=== PATIENT | female | born 1965 | race Caucasian/White ===

== ENCOUNTER → 2024-08-03 15:50 | Outpatient (REF) | payer BC, SELFPAY | LOC: HWRCS 15:50 | PROVIDERS: ATTENDING PHYSICIAN Internal Medicine Cardiovascular Disease; FAMILY PHYSICIAN Family Medicine | DX: E78.5 Hyperlipidemia, unspecified (principal); R55 Syncope and collapse | CPT/HCPCS: 93306 ==

== ENCOUNTER 2025-01-27 20:21 | Emergency (ER) | payer BC, SELFPAY ==
[2025-01-27 20:27] VITALS: BP 150/96
[2025-01-27 20:52] LABS: Hematocrit 34.6 % (37.0-47.0); Hemoglobin 12.5 g/dL (12.0-16.0); Mean Corp Hgb Conc. 36.1 g/dL (33.0-37.0); Mean Corpuscular Volume 88.5 fL (81.0-99.0); Nucleated Red Blood Cells % 0 %; Platelet Count 278 10^3/uL (130-400); Red Cell Dist. Width 11.6 % (11.5-14.5)
[2025-01-27 21:12] LABS: ALT (SGPT) 22 U/L (0-35); AST (SGOT) 25 U/L (14-36); Albumin 4.9 g/dl (3.5-5.0); Alkaline Phosphatase 84 U/L (38-126); Blood Urea Nitrogen 14 mg/dl (7-17); Calcium 10.0 mg/dl (8.4-10.2); Carbon Dioxide 24 mmol/L (22-30); Chloride 105 mmol/L (98-107); Glucose 91 mg/dl (70-99); Lipase 154 U/L (23-300); Potassium 3.5 mmol/L (3.5-5.1); Sodium 139 mmol/L (135-145); Total Protein 7.6 g/dl (6.3-8.2); eGFR > 60.00
[2025-01-27 21:25] LABS: Troponin I < 0.012 ng/ml
[2025-01-27 23:32] VITALS: BP 153/97
--- NOTE | 2025-01-27 23:36 | EDRN ---
Pt developed upper R abdominal pain around 1900 that radiates into epigastric area and back. Pain has improved a lot since it started. No medications taken for pain. Pt burped and said it did not help. Pt vomited couple times which did not
relieve pain immediately. No nausea now. No hx gallstones. Pt has a hiatal hernia. Pt felt shaky in waiting room, no longer. No fever/cough, sob. Pt had a slice of pizza and fries for dinner.
[2025-01-28] VITALS: BP 148/99
[2025-01-28 02:50] VITALS: BP 144/96
[2025-01-28 03:00] VITALS: BP 139/95
--- NOTE | 2025-01-28 04:06 | ED.GENMED ---
History of Present Illness
General
Chief Complaint: Chest Pain
Source: patient
Exam Limitations: none
Time Seen by Provider: 01/27/25 23:25
Nursing documentation reviewed up to this point in time: agreed with
History of Present Illness
History of Present Illness:
Note:
CHIEF COMPLAINT(S)
Severe epigastric pain
HISTORY OF PRESENT ILLNESS
The patient is a 59-year-old female with a history of hiatal hernia, presenting with severe epigastric pain. The pain began approximately between 6:30 and 7:00 PM on the night of the visit. The patient initially thought the pain was related to her
hiatal hernia, as similar pain sometimes occurs due to it, but typically resolves after belching. In this case, the pain progressively worsened instead of subsiding. It is described as sharp and severe, with intensity reaching up to 9 out of 10, and
it fluctuates in severity. The pain persisted even after vomiting, which occurred approximately 45 minutes to an hour after eating. The patient reported having not experienced such severe pain from her hernia in the past.
ADDITIONAL HISTORY OBTAINED FROM SOURCES OTHER THAN THE PATIENT
No additional sources were consulted for this visit.
PHYSICAL EXAM
General: Alert, no acute distress.
Skin: Warm, dry.
Head: Normocephalic, atraumatic.
Neck: Supple, trachea midline.
Eye Ears, nose, mouth, and throat: Oral mucosa moist.
Cardiovascular: Normal peripheral perfusion, no edema.
Respiratory: Respirations are non-labored.
Gastrointestinal: Abdomen nondistended.
Back: Normal range of motion, normal alignment.
Musculoskeletal: Normal range of motion, normal strength.
Neurological: Alert and oriented to person, place, time, and situation. No focal neurological deficit observed.
Psychiatric: Cooperative, appropriate mood & affect.
PLAN
The plan includes performing an abdominal ultrasound to assess for gallbladder issues, such as cholecystitis or biliary colic. The patient is advised not to eat or drink until further assessment is done, in case surgical intervention becomes
necessary. Depending on the ultrasound results, the patient might be recommended to consult with a surgeon for potential elective gallbladder removal if long-term issues with the gallbladder are identified. If the ultrasound results do not indicate
significant issues, the patients condition might be managed conservatively with pain control and outpatient follow-up.
DIFFERENTIAL DIAGNOSIS
The Differential Diagnosis includes, in no particular order and is not limited to:
1. Biliary colic
2. Acute cholecystitis
3. Peptic ulcer disease
4. Pancreatitis
5. Gastroesophageal reflux disease (GERD)
6. Myocardial infarction
7. Gastritis
8. Esophageal spasm
9. Hiatal hernia pain
10. Gallstones (cholelithiasis)
Disposition:
SUMMARY OF ENCOUNTER
The patient, a 59-year-old female with a history of hiatal hernia, presented to the emergency department with severe epigastric pain that began around 6:30 to 7:00 PM. Initially, she thought it was related to her hiatal hernia, which typically
resolves after belching. However, the pain worsened and was described as sharp, with a fluctuating intensity reaching up to 9 out of 10. Despite vomiting approximately 45 minutes to an hour after eating, the pain persisted. Due to the severity and
nature of the pain, an abdominal ultrasound was ordered to assess for potential gallbladder issues, such as cholecystitis or biliary colic. The patient was advised to refrain from eating or drinking until further assessment.
PLAN
Perform an abdominal ultrasound to evaluate for gallbladder issues. Instruct the patient not to eat or drink pending further assessment. Depending on the ultrasound results, a surgical consultation may be considered for possible elective gallbladder
removal. If no significant pathology is found, manage conservatively with pain control and outpatient follow-up.
INDEPENDENT REVIEW OF LABS AND INTERPRETATION OF TESTS
My independent interpretation of an abdominal ultrasound shows the need to assess for gallbladder issues, such as cholecystitis or biliary colic.
PATIENT EDUCATION AND COUNSELING
The patient was informed about the potential need for further intervention based on the ultrasound results and advised on the importance of avoiding food and drink until the evaluation is complete.
MEDICATION RECONCILIATION
No medications were administered or prescribed during the visit as per the open hearth helper provided.
MEDICAL DECISION MAKING
- Complexity of Data Reviewed: Chronic conditions affecting care include the patients hiatal hernia as per the history. Additional differential diagnoses considered include biliary colic, acute cholecystitis, peptic ulcer disease, pancreatitis,
GERD, myocardial infarction, gastritis, esophageal spasm, hiatal hernia pain, and gallstones.
- Data:
Category 1: An abdominal ultrasound was ordered for evaluation.
Category 2: No additional history was obtained from sources other than the patient.
Category 3: Not discussed with other healthcare providers per the open hearth helper.
- Risk: Consideration of Admission/Observation: Escalation of care including admission/observation was considered given the complexity and risk of the patients presenting complaint and underlying comorbidities. However, ultimately, the patient was
deemed safe for outpatient management with close follow-up. Reasoning: Work-up reassuring, does not reveal any acute life/organ-threatening processes; patients symptoms well controlled upon reevaluation; reexamination is reassuring; vitals are
stable; patient agreeable with discharge; reliable for follow-up.
DIAGNOSIS
Epigastric pain, acute [ICD-10 CM-Code R10.13]; Possible biliary colic [ICD-10 CM-Code K80.20].
Past History
Past History
ED Past Medical History: HTN, Hypercholesterolemia, Other (Previous epiglottitis, ORIF of right clavicle, hypertension) and Other (Currently being treated for a bacterial infection at the surgical site of her right auricle.)
ED Past Surgical History: Orthopedic
Social History
Tobacco: Non-smoker
Alcohol: Occasional
Drug: None
Personal: Single
Living: with family
Employment: Employed
Family History
Family History: Other (Dad with diabetes and non-Hodgkin's lymphoma. Mother with hypertension)
Phy Exam
Physical Exam
Physical Exam:
.
Scores
Heart Score for Chest Pain Patients
STEMI patient?: No
History: Slightly or Non-Suspicious
ECG: Normal
Age: >45 - <65 years
Risk Factors: 1 or 2 Risk Factors
Troponin: </= Normal Limit
Heart Score for Chest Pain Patients: 2
Heart Score Risk: 2.5% MACE over next 6 weeks
Course
Orders/Labs/Results
Orders:
Orders
01/27/25 20:22
Electrocardiogram (*1) Urgent
Reason for Study: Abdominal Pain
EKG- Treatment ONCE
01/27/25 20:35
Complete Blood Count/With Diff Urgent
Comprehensive Metabolic Panel Urgent
Lipase Urgent
Troponin I Urgent
01/28/25 00:21
US Abdomen Complete/Upper Urgent
Comment:
Reason For Exam: epigastric and ruq pain
Abnormal Lab Results
01/27/25
20:35
RBC 3.91 L 10^6/uL
(4.20-5.40)
Hct 34.6 L %
(37.0-47.0)
MCH 32.0 H pg
(27.0-31.0)
Absolute Monos (auto) 0.7 H 10^3/uL
(0.1-0.6)
01/27/25 20:35
01/27/25 20:35
Vital Signs
Initial and Last Documented VS:
Initial Vital Signs
Temp Pulse Resp BP Pulse Ox
98.7 F 76 16 150/96 99
01/27/25 20:27 01/27/25 20:27 01/27/25 20:27 01/27/25 20:27 01/27/25 20:27
Last Documented Vital Signs
Temp Pulse Resp BP Pulse Ox
98.7 F 72 12 139/95 97
01/27/25 20:27 01/28/25 03:00 01/28/25 02:51 01/28/25 03:00 01/28/25 04:09
*Pulse Oximetry
SaO2: 97
Oxygen Mode of Delivery: Room air
Patient hypoxic: no
*Critical Care Note
Total Time (30-74mins, 75-104mins- exclusive of procedures): Not Applicable
Update Note
Update Note:
Preliminary Radiology Report
[facility], [facility] - Phone
[facility]
NAME: YORDAN CARSON
DATE OF EXAM: 01/28/2025
Patient No: [id number]
Physician: SANDIE^Tammie
Date of : 1965
Past Medical History (entered by Technologist):
Reason For Exam (entered by Technologist):
Other Notes (entered by Technologist):
Additional Information (per [facility] Radiologist):
ULTRASOUND ABDOMEN COMPLETE
COMPARISON: None
IMPRESSION:
The gallbladder is distended and there appear to be several sludge balls in the gallbladder without shadowing to indicate stone. There is gallbladder wall thickening up to 4 mm and trace pericholecystic fluid.
Sonographic Bowen's sign negative.
Findings may indicate biliary colic or early acute cholecystitis in the appropriate clinical setting
Common bile duct measures 5 mm, normal.
Visualized pancreas is unremarkable.
Increased hepatic echogenicity is consistent with steatosis.
The kidneys are normal.
Visualized abdominal aorta and inferior vena cava are normal.
Spleen is unremarkable.
Case results were faxed/electronically transmitted at 4838 EST. If there are any questions please feel free to contact me directly at [phone], ext [phone]. If you cannot reach me at this number, do not leave a voicemail. Please call [phone]
ext [phone] and ask for the next available radiologist.
Kenny Metz M.D.
This report has been electronically signed and verified by the Radiologist whose name is printed above.
Discussed ultrasound findings with the patient. She is currently asymptomatic. She wishes to be discharged home. Discussed return to ER instructions with the patient at length. She has no further questions. She does understand that this could
be the beginnings of acute cholecystitis and may need surgery. Patient verbalized that understanding and has no further questions.
ED Attending Note
-
Portions of this chart may have been created with voice recognition software.� Occasional wrong word or��sound alike� substitutions may have occurred due to the inherent limitations of voice recognition software.
Discharge Plan
Departure
Patient Disposition: Home (Routine Discharge)
Date of Disposition: 01/28/25
Time of Disposition: 04:17
Patient with high blood pressure during this ER visit?: Yes
Discharge Problem:
Biliary colic, Chest pain
Instructions: Gallstones - ED discharge instructions, BLOOD PRESSURE
Prescriptions:
No Action
omeprazole 20 MG tablet,delayed release (DR/EC)
20 mg PO DAILY
multivitamin 1 EACH tablet
1 ea PO DAILY
diltiazem HCl [Cardizem CD] 240 mg Capsule,Extended Release 24hr
240 mg PO DAILY
doxazosin 2 mg Tablet
2 mg PO DAILY
semaglutide (weight loss) 0.25 mg/0.5 mL Pen Injector
0.25 mg SC SUWE
Referrals:
Huy Olivarez DO [Family Provider, Family Practice]
Vincent Raymond MD [Active, Surgical]
Activity Restrictions/Additional Instructions:
Your ultrasound showed distention and sludge. There is gallbladder wall thickening. This may indicate biliary colic or acute cholecystitis as discussed.
As discussed, please return to the ER with worsening symptoms. Follow-up with general surgery. Call today for an appointment.
Thank You for choosing [facility].
It was a pleasure meeting you and taking part in your care. We hope for your continued healing and wellness.
Please read discharge instructions in their entirety. However, they are for general education and may not describe your exact diagnosis at discharge. Information on your ER visit and medical conditions were discussed with you along with appropriate
follow up information...
If indicated, please take your medications as instructed and indicated on discharge paperwork.
Please schedule a follow up appointment as directed. Call to schedule an appointment
Please return to the emergency department with ANY change in, persisting, or worsening of symptoms. If any of your symptoms do not improve, or persist, or become more severe within 6-12 hours, please return to the emergency department for further
care.
Please return to the emergency department if you develop a headache, neck pain/stiffness, fever greater than 100.4F, chest pain, shortness of breath, persistent nausea, vomiting, slurred speech, difficulty walking, numbness/tingling, weakness, signs
of infection or any other symptoms that are worrisome to you.
If you have any questions or concerns please do not hesitate to call the Hospital at or E-mail me directly at [email or web address]
Interventions
Interventions:
*Risk Screen - Suicide Last Done: 01/27/25 20:27
*General Assessment Last Done: 01/27/25 20:27
*Neglect/Abuse Screening Last Done: 01/27/25 20:27
*ED- Fall Risk Assessment Last Done: 01/27/25 23:46
*Nursing Disposition Last Done: 01/28/25 04:27
ED- Cardiac Assessment Last Done: 01/27/25 23:46
Discharge Date and Time
Discharge Date/Time: 01/28/25 04:27
Print Language: LEBANESE
== END 2025-01-28 04:27 | disposition home or self-care (01) ==
LOC: EMR 20:21
PROVIDERS: EMERGENCY PHYSICIAN Student in an Organized Health Care Education/Training Program; FAMILY PHYSICIAN Family Medicine
DX: K80.50 Calculus of bile duct without cholangitis or cholecystitis without obstruction (principal); I10 Essential (primary) hypertension; E78.00 Pure hypercholesterolemia, unspecified; Z98.890 Other specified postprocedural states
CPT/HCPCS: 99284; 76700; 80053; 83690; 84484; 85025; 93005

== ENCOUNTER 2025-03-28 06:32 | Day surgery (SDC) | payer BC, SELFPAY ==
--- NOTE | 2025-03-26 11:56 | PTCARENOTE ---
Dorothy in Dr Raymond's office made aware patient took her Semaglutide 0.25mg this past saturday 03/24. She was instructed to hold 03/27 dose. Will make anesthesia aware also.
--- NOTE | 2025-03-26 17:16 | PTCARENOTE ---
Dr. Espinal made aware that patient took a dose of semaglutide 2.5mg saturday 03/24. He stated pt must be on strict clear liquids for 24hours prior to procedure, 2 hours NPO prior. Dorothy in office made aware, directions forwarded to her. She stated
she will call patient and inform her.
[2025-03-28] VITALS (8 sets, daily range): BP systolic 110–130; BP diastolic 66–87; BMI 30.8
--- NOTE | 2025-03-28 10:34 | W.SUR.PREOP ---
Pre-Operative Surgical Note
-
I have examined this patient prior to the performance of the scheduled procedure.
The patient's condition is unchanged from the time of the current History and
Physical and the patient is able to undergo the scheduled procedure.
--- NOTE | 2025-03-28 10:34 | HP.FOC2 ---
Focused History & Physical
Chief Complaint
HPI:
Chief Complaint: Biliary colic
HPI / Indication for Planned Procedure: This is a 59-year-old female who presents with symptomatic cholelithiasis. Will plan for laparoscopic cholecystectomy with cholangiogram.
Relevant Past Medical History: Negative
Relevant Social History: Negative
Relevant Family History: Negative
Relevant Past Surgical History: Negative
Review of Systems
Review of Pertinent Systems: All Systems Negative
Medication
See Medication form for detailed medications: Yes
Medication List (including Herbals & OTC):
omeprazole 20 mg tablet,delayed release 20 mg PO DAILY 11/06/17
multivitamin 1 ea PO DAILY 11/08/17
diltiazem HCl 240 mg capsule,extended release 24 hr (Cardizem CD) 240 mg PO HS 01/27/25
doxazosin 2 mg tablet 2 mg PO DAILY 01/27/25
semaglutide (weight loss) 0.25 mg/0.5 mL subcutaneous pen injector 0.25 mg SC SUWE 01/27/25
escitalopram oxalate 10 mg tablet (Lexapro) 10 mg PO DAILY 03/26/25
Medications Reviewed: Yes
Allergies and Reactions
Patient has Allergies: Yes
Noted Allergies and Reactions:
Allergy/AdvReac Type Severity Reaction Status Date / Time
Iodinated Contrast Media Allergy Severe in s- Verified 03/28/25 10:28
IVP test,
swelling
post
Tetanus Vaccines and Toxoid Allergy Severe Anaphylaxis Verified 03/28/25 10:28
tetracycline Allergy Severe esophagus Verified 03/28/25 10:28
swelling,
trouble
swallowing
levofloxacin (From Levaquin) Allergy Mild Rash Verified 03/28/25 10:28
clindamycin Allergy Rash Verified 03/28/25 10:28
lisinopril Allergy angioedema Verified 03/28/25 10:28
nabumetone (From Relafen) Allergy Rash Verified 03/28/25 10:28
Pertinent Physical Exam
All Other Systems: Negative
Head/Neck: Normal
Diagnosis / Assessment
This is a 59-year-old female who presents with symptomatic cholelithiasis.
Plan / Procedure
Will plan for laparoscopic cholecystectomy with cholangiogram.
Anesthesia/Sedation to be done by Anesthesia Provider: Yes
[2025-03-28] MEDS: NORMOSOL-R/PLASMALYTE-A 1000 IV (10:42)
[2025-03-28] MEDS: TYLENOL 1000 MG PO (10:43)
[2025-03-28] MEDS: EMEND 40 MG PO (10:54)
[2025-03-28] MEDS: ZOFRAN 4 MG IV (12:20)
[2025-03-28] MEDS: DILAUDID 0.25 MG IV ×2 (12:21→13:10)
--- NOTE | 2025-03-28 12:26 | W.IMMPOSTOP ---
Surgical Immed Post Op Note
-
Primary Surgeon: Vincent Raymond MD
Assisting Surgeon: None
Pre-op Diagnosis: Biliary colic
Post-op Diagnosis: Same
Procedure Performed: Laparoscopic cholecystectomy with cholangiogram
Anesthesia Type: General
Specimen / Cultures: Gallbladder and contents
Estimated Blood Loss: 3 cc
Complications: None
Operative Findings: Fairly normal-appearing gallbladder. Critical view of safety obtained prior to a cholangiogram which demonstrated normal bili anatomy and no distal filling defects. The duct was ligated with a clip followed by 0 PDS Endoloop.
[2025-03-28] MEDS: DILAUDID 0.5 MG IV ×2 (12:35→12:51)
[2025-03-28] MEDS: MOTRIN 600 MG PO (13:40)
[2025-03-28] MEDS: ROXICODONE 5 MG PO (13:40)
--- NOTE | 2025-03-28 14:03 | OR.RPT ---
Operative Report
Operative Report
Patient Name: Sonali Veras
: 1965
Date of Operation: 03/28/2025
Preoperative Diagnosis: Biliary colic
Postoperative Diagnosis: Same
Procedure(s):
Laparoscopic Cholecystectomy with Cholangiogram
Surgeon(s):
Dr. Raymond
Teacher Emotionally Impaired(s):
MDAHAV Contreras
Anesthesia: General
Estimated Blood Loss: 3 cc
Urine Output: None
Drains/Lines/Implants: None
Specimens:
1. Gallbladder and contents
HPI/Surgical Indications:
This is a 59-year-old female who presented to my office with postprandial right upper quadrant abdominal pain. Exam, labs and imaging are consistent with biliary colic. Though no alfonso stones were identified on ultrasound, biliary sludge was seen
sonographically. Risks/Benefits/Alternatives were discussed at length, and the patient agreed to proceed with surgery.
Operative Findings: Fairly normal-appearing gallbladder. Critical view of safety obtained prior to a cholangiogram which demonstrated normal bili anatomy and no distal filling defects. The duct was ligated with a clip followed by 0 PDS Endoloop.
Procedure Description:
The patient was brought to the Operating Room and placed in the supine position with one arm tucked. Following uneventful induction of general endotracheal anesthesia, an orogastric tube was placed. The abdomen was prepped and draped in the usual
sterile fashion. A timeout was performed confirming the procedure, consent, and that IV antibiotics were infused and sequential compression devices were confirmed to be on. The abdomen was entered using a left subcostal Veress technique which
required a single pass followed by a 5 mm right upper quadrant Optiview trocar. Pneumoperitoneum to 15 mmHg pressure was obtained without difficulty and we confirmed that no injury had occurred during our entry. The patient was positioned in
reverse Trendelenberg and rotated with the right side up slightly. Two 5 mm trocars were then placed along the right subcostal margin, followed by a 12 mm port in the epigastrium. The gallbladder appeared fairly normal. A locking grasping forceps
was placed on the fundus of the gallbladder where it was then retracted cephalad and to the right. Using appropriate grasping instruments, the peritoneum overlying the triangle of Calot was incised and extended superiorly on both the anterior and
posterior gallbladder lopez. The infundibulum was dissected off the cystic plate. The cystic triangle was dissected until a critical view of safety was achieved. The cystic artery was medialized, dissected and controlled with 2 proximal clips and 1
distal. The cystic duct/gallbladder junction in turn was identified, dissected circumferentially and a clip was placed. A ductotomy was made and a cholangiocatheter on an Parmar clamp was inserted into the cystic duct. Initial attempt at cannulation
was somewhat difficult so ductotomy further down the cystic duct was chosen in the cholangiocatheter was passed with ease. A C-arm was draped and brought into the field. An intra-operative cholangiogram was performed and was noted to have:
No filling defects in the biliary tree
No significant biliary dilation
Brisk flow of contrast into the duodenum
Normal biliary anatomy
The catheter was then removed and the cystic duct was controlled with a 5 mm titanium clip followed by a 0 PDS Endoloop. After ensuring both the artery and duct were divided, the gallbladder was freed from the liver using electrocautery. There was
some spillage of bile from our ductotomy, but no spillage of stones. The gallbladder bed was inspected and excellent hemostasis was obtained. The gallbladder was extracted through the 12 mm trocar site using an endocatch bag. The abdomen was again
irrigated and excellent hemostasis was assured. All remaining trocars were then removed and the pneumoperitoneum was evacuated. The 12 mm trocar site was closed using 0 PDS suture. All trocar sites were closed at the skin level using 4-0 Monocryl
followed by Dermabond. Overall, the patient tolerated the procedure well and was taken to the Recovery Room postoperatively in stable condition.
I was the attending physician and performed the procedure with assistance of the PA above. The assistance of MADHAV Contreras was required due to the complexity of the procedure. During the procedure Jacquelyn assisted with port placement, tissue
retraction, holding camera, and closure of the wound. Almas was present for all portions of the case, excluding skin closure.
Vincent Raymond MD
== END 2025-03-28 14:32 | disposition home or self-care (01) ==
LOC: SDS 06:32
PROVIDERS: ATTENDING PHYSICIAN Surgery
DX: K80.10 Calculus of gallbladder with chronic cholecystitis without obstruction (principal)
CPT/HCPCS: 47563; 74300; 76000; 88304; A4300